=== PATIENT | male | born 1980 | race Caucasian/White ===

== ENCOUNTER 2018-08-17 05:55 | Day surgery (SDC) | payer OTHER ==
[2018-08-17] MEDS ORDERED: LACTATED RINGERS 1,000 ML IV ONE (06:23)
[2018-08-17] MEDS ORDERED: ceFAZolin 2 GM/50 ML 2 GM/50 ML BAG IV ONE (06:53)
--- NOTE | 2018-08-17 07:09 | ANESTHESIA ---
Pre-Anesthesia VS, & Labs - Diagnosis umbilical hernia - Procedure umbilical hernia repair Height 6 ft 2 in Weight (kg) 105 kg - NPO >8 hours Home Medications and Allergies Home Medications: Ambulatory Orders Acetaminophen [Tylenol Extra Strength] 500 mg PO Q4HR PRN 08/10/18 Sertraline HCl 100 mg PO DAILY 08/10/18 Acetaminophen [Tylenol Extra Strength] 500 mg PO Q4HR PRN 08/10/18 Sertraline HCl 100 mg PO DAILY 08/10/18 Allergies/Adverse Reactions: Allergies Allergy/AdvReac Type Severity Reaction Status Date / Time No Known Drug Allergies Allergy Verified 08/17/18 06:34 Anes History & Medical History - Anesthetic History Anesthesia Complications: reports: No previous complications Family history of Anesthesia Complications: Denies Family history of Malignant Hyperthermia: Denies - Medical History Cardiovascular: reports: None Pulmonary: reports: None Gastrointestinal: reports: GERD Urinary: reports: Other Musculoskeletal: reports: Chronic back pain Endocrine/Autoimmune: reports: None Skin: reports: None - Surgical History Other Past Surgical History: vasectomy, dental implants Exam General: Alert, Oriented x3, Cooperative Dental: WNL Mouth Openin Fingerbreadth Neck Mobility: Normal Mallampati classification: II Respiratory: Lungs clear Cardiovascular: Regular rate Neurological: Normal speech Mental/Cognitive Status: Alert/Oriented X3, Normal for patient Cognitive Status: Within normal limits Plan Anesthesia Type: MAC Consent for Procedure(s) Verified and Reviewed: Yes Code Status: Attempt Resuscitation ASA classification: 1-Healthy patient Is this case an emergency?: No
[2018-08-17] MEDS ORDERED: LIDOCAINE 1%-EPI 1:100000 30 ML MDV ONE (07:19)
[2018-08-17] MEDS ORDERED: BUPIVACAINE 0.5% PF 30 ML VIAL ONE (07:19)
[2018-08-17] MEDS ORDERED: ceFAZolin 1 GM VIAL ONE (07:20)
[2018-08-17] MEDS ORDERED: LIDOCAINE MPF 1%-EPI 1:200000 30 ML VIAL SUBQ ONE ×2 (07:43)
[2018-08-17] MEDS ORDERED: BUPIVACAINE 0.5% PF 30 ML VIAL INFIL ONE ×2 (07:43)
[2018-08-17] MEDS ORDERED: oxyCODONE 5 MG TABLET PO PRN (08:29)
[2018-08-17] MEDS ORDERED: ACETAMINOPHEN 325 MG TABLET PO PRN (08:29)
[2018-08-17] MEDS ORDERED: IBUPROFEN 600 MG TABLET PO PRN (08:29)
[2018-08-17] MEDS ORDERED: ONDANSETRON 4 MG/2 ML VIAL IVP PRN (08:29)
[2018-08-17] MEDS ORDERED: KETOROLAC 30 MG/ML VIAL IVP ONE (09:00)
[2018-08-17] MEDS ORDERED: MIDAZOLAM 2 MG/2 ML VIAL IVP ONE (09:00)
[2018-08-17] MEDS ORDERED: PROPOFOL 200 MG/20 ML VIAL IVP ONE (09:00)
[2018-08-17] MEDS ORDERED: DEXAMETHASONE 4 MG/ML VIAL IVP ONE (09:00)
[2018-08-17] MEDS ORDERED: ONDANSETRON 4 MG/2 ML VIAL IVP ONE (09:00)
[2018-08-17] MEDS ORDERED: LIDOCAINE-MPF 2% 5 ML VIAL IM ONE (09:00)
[2018-08-17] MEDS ORDERED: fentaNYL 100 MCG/2 ML VIAL IVP ONE (09:00)
[2018-08-17 09:15] VITALS: BP 128/96
--- NOTE | 2018-08-17 11:07 | OPERATIVE REPORT ---
DATE OF SERVICE: 08/17/2018 Physician: Coy Mejia MD PREOPERATIVE DIAGNOSIS: Symptomatic umbilical hernia. POSTOPERATIVE DIAGNOSIS: Symptomatic umbilical hernia. PROCEDURE PERFORMED: Open repair of symptomatic umbilical hernia. ANESTHESIA: Local plus monitored anesthesia care by Marshall Carrillo CRNA. SURGEON: Coy Mejia MD ESTIMATED BLOOD LOSS: 5 mL. COMPLICATIONS: None. FINDINGS: A 1 cm umbilical fascial defect was present with omentum present within the hernia sac. T here was no evidence of strangulation or incarceration. INDICATIONS: Patient is a 38-year-old gentleman with a recent onset of a painful umbilical bulge. E xamination revealed a reducible small umbilical hernia. He was advised to undergo repair. TECHNIQUE: After informed consent, the patient was taken to the operating room where he was sedated and monitored. Preoperative preparation included administration of 2 grams of cefazolin intravenousl y within an hour of the incision and application of sequential calf compression boots. His abdomen h ad been clipped in ASU, was repaired with iodoform solution, following which, a periumbilical block w as instilled using a 50:50 combination of 1% lidocaine plain and 0.5% Marcaine with epinephrine, a to sonia of 35 mL of the mixture was used. The abdomen was re-prepared with ChloraPrep solution and drape d in the usual sterile fashion. A curvilinear transverse infraumbilical incision was made approximately 4 cm in length and carried do wn through subcutaneous tissues. Hemostasis achieved with electrocautery. The umbilical dermis was dissected off of the underlying hernia sac, which was then opened and excised. The fascial edges wer e mobilized circumferentially. The omentum was reduced in the peritoneal cavity. The fascial edges were reapproximated transversely with interrupted 0 Ethibond sutures, approximately 4 were used. After hemostasis was assured, the wound was irrigated with antibiotic solution containing 1 gram of c efazolin per liter, following which, wound closure was accomplished in layers using interrupted 2-0 V icryl to reapproximate the deep subcutaneous tissues, followed by continuous 3-0 Vicryl for the super ficial subcutaneous tissues, followed by 4-0 Monocryl subcuticular skin closure and Dermabond. The p rocedure was terminated. The patient was transferred out of the operating room in satisfactory condi tion. Sponge and needle counts were correct x2. No drains were used. cc: Roe Hughes MD TD: 08/17/2018 08:43
== END 2018-08-17 05:56 | disposition home or self-care (01) ==
LOC: SDS 05:55
PROVIDERS: ATTEND Internal Medicine Gastroenterology
PROC: 0WQF0ZZ Repair Abdominal Wall, Open Approach (ICD-10-PCS; principal; 2018-08-17 07:30)
DX: K42.9 Umbilical hernia without obstruction or gangrene (principal); K59.03 Drug induced constipation; Z87.891 Personal history of nicotine dependence
CPT/HCPCS: 49585; J0690; J7120

== ENCOUNTER 2020-03-04 17:53 | Day surgery (SDC) | payer OTHER ==
[2020-03-04 18:13] LABS: BILIRUBIN,URINE NEGATIVE (NEGATIVE); GLUCOSE, URINE (UA) NEGATIVE (NEGATIVE); KETONES,URINE (UA) NEGATIVE (NEGATIVE); LEUKOCYTE ESTERASE, URINE NEGATIVE (NEGATIVE); NITRITE,URINE NEGATIVE (NEGATIVE); OCCULT BLOOD,URINE NEGATIVE (NEGATIVE); PROTEIN,URINE NEGATIVE (NEGATIVE); UROBILINOGEN,URINE 1 (NORMAL) E.U./dL (NORMAL)
[2020-03-04 18:15] LABS: CLARITY,URINE CLEAR (CLEAR)
[2020-03-04 18:22] LABS: BASOPHILS % (AUTO) 0.3 %; EOSINOPHILS # (AUTO) 0.1 10^3/uL (0.0-0.7); EOSINOPHILS % (AUTO) 0.7 %; HGB - HEMOGLOBIN 17.3 g/dL (14.0-18.0); LYMPHOCYTES # (AUTO) 1.1 10^3/uL (1.5-3.5); MEAN CORPUSCULAR HEMOGLOBIN 30.5 pg (27.0-31.0); MEAN CORPUSCULAR HGB CONC 34.9 g/dL (32.0-36.0); MEAN CORPUSCULAR VOLUME 87.3 fL (80.0-94.0); MEAN PLATELET VOLUME 10.8 fL (7.4-11.4); MONOCYTES # (AUTO) 0.5 10^3/uL (0.0-1.0); MONOCYTES % (AUTO) 5.8 %; NEUTROPHILS # (AUTO) 7.4 10^3/uL (1.5-6.6); NEUTROPHILS % (AUTO) 80.9 %; PLT - PLATELET COUNT 197 10^3/uL (130-450); RED BLOOD COUNT 5.67 10^6/uL (4.70-6.10); RED CELL DISTRIBUTION WIDTH 12.4 % (12.0-15.0); WHITE BLOOD COUNT 9.2 x10^3/uL (4.8-10.8)
[2020-03-04 18:34] LABS: ALBUMIN 4.7 g/dL (3.2-5.5); ALBUMIN/GLOBULIN RATIO 1.4 (1.0-2.2); BILIRUBIN,TOTAL 0.6 mg/dL (0.2-1.0); CALCIUM 9.9 mg/dL (8.5-10.3); CREATININE 1.1 mg/dL (0.6-1.2); TOTAL PROTEIN 8.1 g/dL (6.7-8.2)
[2020-03-04] MEDS ORDERED: IOVERSOL 320 100 ML VIAL IVP ONE ×2 (19:08→20:11)
--- NOTE | 2020-03-04 19:24 | ED Physician Documentation ---
PD HPI ABD PAIN - Stated complaint Stated Complaint: ABD PX - Chief complaint Chief Complaint: Abd Pain - History obtained from History obtained from: Patient - History of Present Illness Pain level max: 7 Pain level now: 5 Quality: Aching, Pain Location: RLQ Radiation: No: Chest, , Lower back, Left flank, Left shoulder, Right flank, Right shoulder, Upper back Improved by: Laying still Worsened by: Moving, Palpation Associated symptoms: Nausea. No: Fever, Vomiting, Hematemesis, Diarrhea, Constipation Similar symptoms before: Has not had sx before Recently seen: Not recently seen - Additional information Additional information: Patient is a 40-year-old male who presents to the emergency department with diffuse abdominal pain today, gradually settling in the right lower quadrant. Worse with movement, better with rest. Last oral intake was approximately noon today. No fevers. Some nausea but no vomiting. No diarrhea or constipation. Has not had similar symptoms previously. Review of Systems Ten Systems: 10 systems reviewed and negative Constitutional: denies: Fever, Chills Ears: denies: Ear pain Nose: denies: Rhinorrhea / runny nose, Congestion GI: denies: Vomiting, Diarrhea : denies: Dysuria, Frequency, Hesitancy, Hematuria Skin: denies: Rash Musculoskeletal: denies: Neck pain, Back pain Neurologic: denies: Headache PD PAST MEDICAL HISTORY - Past Medical History Cardiovascular: None Respiratory: None Endocrine/Autoimmune: None GI: GERD : Other HEENT: None Psych: Anxiety, Panic attacks Musculoskeletal: Chronic back pain Derm: None - Present Medications Home Medications: Ambulatory Orders Medication Instructions Recorded Confirmed Acetaminophen [Tylenol Extra 500 mg PO Q4HR PRN 08/10/18 08/10/18 Strength] Sertraline HCl 100 mg PO DAILY 08/10/18 08/17/18 oxyCODONE [Roxicodone] 5 mg PO Q6H PRN #15 tablet 08/17/18 - Allergies Allergies/Adverse Reactions: Allergies Allergy/AdvReac Type Severity Reaction Status Date / Time No Known Drug Allergies Allergy Verified 03/04/20 18:26 PD ED PE NORMAL - Vitals Vital signs reviewed: Yes - General General: Alert and oriented X 3, No acute distress, Well developed/nourished - HEENT HEENT: Moist mucous membranes - Neck Neck: Supple, no meningeal sign - Cardiac Cardiac: RRR, Strong equal pulses - Respiratory Respiratory: No respiratory distress, Clear bilaterally - Abdomen Abdomen: Soft, Non distended, Other (Tender to palpation right lower quadrant McBurney's point. Positive rebound and guarding. Positive Rovsing sign. Negative psoas and obturator signs. Positive heeltap) - Back Back: No CVA TTP, No spinal TTP - Derm Derm: Warm and dry - Extremities Extremities: No edema - Neuro Neuro: Alert and oriented X 3 - Psych Psych: Normal mood, Normal affect Results - Vitals Vitals: Vital Signs - 24 hr 03/04/20 03/04/20 18:19 19:35 Temperature 36.9 C 36.9 C Heart Rate 122 H 122 H Respiratory 20 20 Rate Blood Pressure 145/101 H 145/100 H O2 Saturation 98 98 Oxygen O2 Source Room air - Labs Labs: Laboratory Tests 03/04/20 03/04/20 03/04/20 06:17 06:17 18:10 WBC 9.2 RBC 5.67 Hgb 17.3 Hct 49.5 MCV 87.3 MCH 30.5 MCHC 34.9 RDW 12.4 Plt Count 197 MPV 10.8 Neut # (Auto) 7.4 H Lymph # (Auto) 1.1 L [place] # (Auto) 0.5 Eos # (Auto) 0.1 Baso # (Auto) 0.0 Absolute Nucleated RBC 0.00 Nucleated RBC % 0.0 Sodium 139 Potassium 3.8 Chloride 100 L Carbon Dioxide 27 Anion Gap 12.0 BUN 16 Creatinine 1.1 Estimated GFR (MDRD) 75 L Glucose 115 H Calcium 9.9 Total Bilirubin 0.6 AST 60 H ALT 120 H Alkaline Phosphatase 69 Total Protein 8.1 Albumin 4.7 Globulin 3.4 Albumin/Globulin Ratio 1.4 Lipase 50 Urine Color YELLOW Urine Clarity CLEAR Urine pH 6.0 Ur Specific [place] 1.025 Urine Protein NEGATIVE Urine Glucose (UA) NEGATIVE Urine Ketones NEGATIVE Urine Occult Blood NEGATIVE Urine Nitrite NEGATIVE Urine Bilirubin NEGATIVE Urine Urobilinogen 1 (NORMAL) Ur Leukocyte Esterase NEGATIVE Ur Microscopic Review NOT INDICATED Urine Culture Comments NOT INDICATED - Rads (name of study) CT abdomen pelvis Radiology: Prelim report reviewed, EMP read contemporaneously, See rad report (Acute appendicitis without perforation or abscess) PD MEDICAL DECISION MAKING - ED course Complexity details: reviewed results, re-evaluated patient, considered differential, d/w patient, d/w family, d/w it security consultant ED course: Patient with acute appendicitis. Discussed the case with Dr. Robertson, general surgery on-call who will come and evaluate the patient. She will take the patient to the operating room. Zosyn given. Pain well controlled. IV fluids started. Departure - Departure Disposition: ED Transfer to [facility] Clinical Impression: Appendicitis Qualifiers: Appendicitis type: acute appendicitis Acute appendicitis type: with localized peritonitis Appendicitis gangrene presence: without gangrene Appendicitis perforation presence: without perforation Appendicitis abscess presence: without abscess Qualified Code(s): K35.30 - Acute appendicitis with localized peritonitis, without perforation or gangrene Condition: Stable
[2020-03-04] MEDS ORDERED: PIPERACILLIN/TAZOBACTAM 4.5 GM in SODIUM CHLORIDE 0.9% MINIBAG 100 ML IV STA (20:16)
[2020-03-04] MEDS ORDERED: ONDANSETRON 4 MG/2 ML VIAL IVP STA (20:21)
[2020-03-04] MEDS ORDERED: LACTATED RINGERS 1,000 ML IV STA (20:21)
[2020-03-04] MEDS ORDERED: MORPHINE 2 MG/ML CARPUJECT IVP STA (20:21)
--- NOTE | 2020-03-04 20:41 | CT Report ---
PROCEDURE: Abdomen/Pelvis W INDICATIONS: RLQ abd pain CONTRAST: IV CONTRAST: Optiray 320 ml: 100 PO CONTRAST: *NO PO CONTRAST TECHNIQUE: After the administration of intravenous contrast, 5 mm thick sections acquired from the diaphragms to the symphysis. 5 mm thick coronal and sagittal reformats were acquired. For radiation dose reducti on, the following was used: automated exposure control, adjustment of mA and/or kV according to peterson ent size. COMPARISON: None. FINDINGS: Image quality: Excellent. ABDOMEN: Lung bases: Lung bases are clear. Heart size is normal. Solid organs: Liver is normal in size. No focal lesion. Gallbladder is unremarkable. Biliary syste m is non dilated. Pancreas enhances normally. Mild splenomegaly measuring 13.3 cm in craniocaudal d imension, (6/42). No adrenal nodules. Kidneys demonstrate normal size and enhancement, without hydro nephrosis. Peritoneum and bowel: Appendix in the right lower quadrant is dilated up to 1.2 cm, (3/73). There is mild to moderate periappendiceal stranding. No fluid collection. No free air. No appendicolith. No sm all bowel obstruction. Distal colon is decompressed. The stomach is mostly decompressed. High density in medication fragments. Nodes and vessels: No retroperitoneal or mesenteric adenopathy by size criteria. Aorta and inferior vena cava are normal in size. Miscellaneous: No ventral hernias. PELVIS: Genitourinary: Bladder wall thickness is normal. Miscellaneous: No inguinal hernias or adenopathy. Bones: No suspicious bony lesions. No vertebral body compression fractures. IMPRESSION: 1. Acute appendicitis, moderate severity. No perforation demonstrated. 2. Mild splenomegaly. Reviewed by: Collin Craig MD on 03/04/2020 8:40 PM PDT Approved by: Collin Craig MD on 03/04/2020 8:40 PM PDT Station ID: [id number]
[2020-03-04] MEDS ORDERED: PROPOFOL 200 MG/20 ML VIAL IVP ONE (20:58)
[2020-03-04] MEDS ORDERED: fentaNYL 100 MCG/2 ML VIAL IVP ONE (20:58)
[2020-03-04] MEDS ORDERED: ROCURONIUM 50 MG/5 ML VIAL IVP ONE (20:58)
[2020-03-04] MEDS ORDERED: SUGAMMADEX 200 MG/2 ML VIAL IVP ONE (20:58)
[2020-03-04] MEDS ORDERED: MIDAZOLAM 2 MG/2 ML VIAL IVP ONE (20:58)
[2020-03-04] MEDS ORDERED: KETOROLAC 30 MG/ML VIAL IVP ONE (20:58)
[2020-03-04] MEDS ORDERED: ONDANSETRON 4 MG/2 ML VIAL IVP ONE (20:58)
[2020-03-04] MEDS ORDERED: DEXAMETHASONE 4 MG/ML VIAL IVP ONE (20:58)
--- NOTE | 2020-03-04 21:07 | HISTORY & PHYSICAL EXAMINATION ---
HPI - Admitted From Admitted from: ED - History Obtained From Records Reviewed: Other (Physician notes) Exam limitations: No limitations - History of Present Illness Severity at the worst: reports: Moderate Pain Quality: reports: Sharp, Aching Context-Pain started w/: reports: Rest Timing: reports: Gradual onset Duration: reports: Hours: (12) Improved with: reports: Nothing Worsened by: reports: Movement Associated symptoms: reports: Nausea HPI Comment/Other: Patient is a 40-year-old male who presents to the emergency department with diffuse abdominal pain today, gradually settling in the right lower quadrant. Worse with movement, better with rest. Last oral intake was approximately noon today. No fevers. Some nausea but no vomiting. No diarrhea or constipation. Has not had similar symptoms previously. He was evaluated in the ED and found to have appendicitis on CT. I have been consulted for difinitive management PMH/PSH - Past Medical History Cardiovascular: positive: None Respiratory: positive: None Endocrine/Autoimmune: positive: None GI: positive: GERD : positive: Other HEENT: positive: None Psych: positive: Anxiety, Panic attacks Musculoskeletal: positive: Chronic back pain Derm: positive: None MRSA Hx?: No Social & Family Hx - Living Situation Living Arrangement: At home Living Situation: With family ([employer]) - Social History Does the pt smoke?: No Smoking Status: Never smoker Does the pt have substance abuse?: No - POLST Patient has POLST: No Meds/Allgy - Home Medications Home Medications: Ambulatory Orders Medication Instructions Recorded Confirmed Acetaminophen [Tylenol Extra 500 mg PO Q4HR PRN 08/10/18 08/10/18 Strength] Sertraline HCl 100 mg PO DAILY 08/10/18 08/17/18 oxyCODONE [Roxicodone] 5 mg PO Q6H PRN #15 tablet 08/17/18 - Allergies Allergies/Adverse Reactions: Allergies Allergy/AdvReac Type Severity Reaction Status Date / Time No Known Drug Allergies Allergy Verified 03/04/20 18:26 Review of Systems - All Other Systems All Other Systems: reports: Reviewed and negative - Other Findings Other Findings: A complete 10 system review is negative with the exception of HPI Exam - Vital Signs Reviewed Vital Signs: Yes Vital Signs: Vital Signs x48h Temp Pulse Resp BP Pulse Ox 03/04/20 19:35 36.9 C 122 H 20 145/100 H 98 03/04/20 18:19 36.9 C 122 H 20 145/101 H 98 - Physical Exam General Appearance: positive: No acute distress, Alert Eyes Bilateral: positive: Normal inspection, PERRL, EOMI ENT: positive: ENT inspection nml, Pharynx nml, No signs of dehydration Neck: positive: Nml inspection, Thyroid nml, No JVD, Trachea midline Respiratory: positive: Chest non-tender, No respiratory distress, Breath sounds nml Cardiovascular: positive: Regular rate & rhythm, No murmur Peripheral Pulses: positive: 2+ Results - Lab Results Lab results reviewed: Yes Fish Bones: 03/04/20 06:17 03/04/20 06:17 Other Lab Results: Lab Results x24hrs 03/04/20 03/04/20 03/04/20 Range/Units 18:10 06:17 06:17 WBC 9.2 (4.8-10.8) x10^3/uL RBC 5.67 (4.70-6.10) 10^6/uL Hgb 17.3 (14.0-18.0) g/dL Hct 49.5 (42.0-52.0) % MCV 87.3 (80.0-94.0) fL MCH 30.5 (27.0-31.0) pg MCHC 34.9 (32.0-36.0) g/dL RDW 12.4 (12.0-15.0) % Plt Count 197 (130-450) 10^3/uL MPV 10.8 (7.4-11.4) fL Neut # (Auto) 7.4 H (1.5-6.6) 10^3/uL Lymph # (Auto) 1.1 L (1.5-3.5) 10^3/uL [place] # (Auto) 0.5 (0.0-1.0) 10^3/uL Eos # (Auto) 0.1 (0.0-0.7) 10^3/uL Baso # (Auto) 0.0 (0.0-0.1) 10^3/uL Absolute Nucleated RBC 0.00 x10^3/uL Nucleated RBC % 0.0 /100WBC Sodium 139 (135-145) mmol/L Potassium 3.8 (3.5-5.0) mmol/L Chloride 100 L (101-111) mmol/L Carbon Dioxide 27 (21-32) mmol/L Anion Gap 12.0 (6-13) BUN 16 (6-20) mg/dL Creatinine 1.1 (0.6-1.2) mg/dL Estimated GFR (MDRD) 75 L (>89) Glucose 115 H (70-100) mg/dL Calcium 9.9 (8.5-10.3) mg/dL Total Bilirubin 0.6 (0.2-1.0) mg/dL AST 60 H (10-42) IU/L ALT 120 H (10-60) IU/L Alkaline Phosphatase 69 (42-121) IU/L Total Protein 8.1 (6.7-8.2) g/dL Albumin 4.7 (3.2-5.5) g/dL Globulin 3.4 (2.1-4.2) g/dL Albumin/Globulin Ratio 1.4 (1.0-2.2) Lipase 50 (22-51) U/L Urine Color YELLOW Urine Clarity CLEAR (CLEAR) Urine pH 6.0 (5.0-7.5) PH Ur Specific [place] 1.025 (1.002-1.030) Urine Protein NEGATIVE (NEGATIVE) mg/dL Urine Glucose (UA) NEGATIVE (NEGATIVE) mg/dL Urine Ketones NEGATIVE (NEGATIVE) mg/dL Urine Occult Blood NEGATIVE (NEGATIVE) Urine Nitrite NEGATIVE (NEGATIVE) Urine Bilirubin NEGATIVE (NEGATIVE) Urine Urobilinogen 1 (NORMAL) (NORMAL) E.U./dL Ur Leukocyte Esterase NEGATIVE (NEGATIVE) Ur Microscopic Review NOT INDICATED Urine Culture Comments NOT INDICATED - Diagnostic Imaging Results Diagnostic Imaging Results: positive: Prelim report reviewed, Final report reviewed Diagnostic Imaging Results Comments: CT consistent with acute appendicitis without obvious evidence of gross peritonitis Impression/Plan - Problem List Problem List: Acute appendicitis I have recommended immediate transfer to the operating room for laparoscopic appendectomy and indicated procedures. We have discussed the risks and benefits of this operation including but not limited to infection, bleeding, damage to other organs or structures in the area, damage to the bowel, unexpected findings or results, nausea, vomiting, stroke, and heart attack. After careful consideration, the patient has expressed a desire to complete the procedure this evening. The OR team has been called. Written and verbal consent were obtained
[2020-03-04] MEDS ORDERED: MORPHINE 2 MG/ML CARPUJECT IVP PRN (21:08)
[2020-03-04] MEDS ORDERED: ATROPINE ABBOJECT 1 MG/10 ML SYRINGE IVP PRN (21:08)
[2020-03-04] MEDS ORDERED: ONDANSETRON 4 MG/2 ML VIAL IVP PRN ×2 (21:08→22:32)
[2020-03-04] MEDS ORDERED: METOCLOPRAMIDE 10 MG/2 ML VIAL IVP PRN (21:08)
[2020-03-04] MEDS ORDERED: ePHEDrine 50 MG/ML VIAL IVP PRN (21:08)
[2020-03-04] MEDS ORDERED: fentaNYL 100 MCG/2 ML VIAL IVP PRN (21:08)
[2020-03-04] MEDS ORDERED: HYDROmorphone 0.5 MG/0.5 ML SYRINGE IVP PRN (21:08)
[2020-03-04] MEDS ORDERED: NALOXONE 0.4 MG/ML VIAL IVP PRN (21:08)
--- NOTE | 2020-03-04 21:08 | ANESTHESIA ---
Pre-Anesthesia VS, & Labs - Diagnosis appendecitis - Procedure lap appendectomy Vital Signs: Temp Pulse Resp BP Pulse Ox 36.9 C 89 16 130/99 H 100 03/04/20 21:00 03/04/20 21:00 03/04/20 21:00 03/04/20 21:00 03/04/20 21:00 Height: 6 ft 2 in Weight (kg): 104.326 kg Body Mass Index: 29.5 BMI Classification: Overweight - NPO >8 hours - Lab Results Current Lab Results: Laboratory Tests 03/04/20 06:17: Sodium 139, Potassium 3.8, Chloride 100 L, Carbon Dioxide 27, Anion Gap 12.0, BUN 16, Creatinine 1.1, Estimated GFR (MDRD) 75 L, Glucose 115 H , Calcium 9.9, Total Bilirubin 0.6, AST 60 H, ALT 120 H, Alkaline Phosphatase 69, Total Protein 8.1, Albumin 4.7, Globulin 3.4, Albumin/Globulin Ratio 1.4, Lipase 50 03/04/20 06:17: WBC 9.2, RBC 5.67, Hgb 17.3, Hct 49.5, MCV 87.3, MCH 30.5, MCHC 34.9, RDW 12.4, Plt Count 197, MPV 10.8, Neut # (Auto) 7.4 H, Lymph # (Auto) 1.1 L, [place] # (Auto) 0.5, Eos # (Auto) 0.1, Baso # (Auto) 0.0, Absolute Nucleated RBC 0.00, Nucleated RBC % 0.0 Lab results reviewed: Yes Fish Bones: 03/04/20 06:17 03/04/20 06:17 Home Medications and Allergies Active Medications Piperacillin Sod/Tazobactam (Sod 4.5 gm/ Sodium Chloride) 100 mls @ 100 mls/hr IV ONCE STA Stop: 03/04/20 21:15 Last Admin: 03/04/20 20:41 Dose: 100 mls/hr Documented by: Lactated Ringer's (Lr) 1,000 mls @ 150 mls/hr IV .Q6H40M STA Stop: 03/05/20 03:00 Acetaminophen [Tylenol Extra Strength] 500 mg PO Q4HR PRN 08/10/18 Sertraline HCl 100 mg PO DAILY 08/10/18 Allergies/Adverse Reactions: Allergies Allergy/AdvReac Type Severity Reaction Status Date / Time No Known Drug Allergies Allergy Verified 03/04/20 18:26 Anes History & Medical History - Anesthetic History Anesthesia Complications: reports: No previous complications Family history of Anesthesia Complications: Denies Family history of Malignant Hyperthermia: Denies - Medical History Cardiovascular: reports: None Pulmonary: reports: None Gastrointestinal: reports: GERD Urinary: reports: Other Musculoskeletal: reports: Chronic back pain Endocrine/Autoimmune: reports: None Skin: reports: None Smoking Status: Never smoker Psychosocial: reports: Anxiety Exam General: Alert, Oriented x3, Cooperative, No acute distress Dental: WNL Mouth Openin Fingerbreadth Neck Mobility: Normal Mallampati classification: I Respiratory: Lungs clear, Normal breath sounds, No respiratory distress, No accessory muscle use Cardiovascular: Regular rate, Normal S1, Normal S2, No murmurs Plan Anesthesia Type: General Consent for Procedure(s) Verified and Reviewed: Yes Code Status: Attempt Resuscitation ASA classification: 1-Healthy patient Is this case an emergency?: Yes
[2020-03-04] MEDS ORDERED: LIDOCAINE 1%-EPI 1:100000 20 ML MDV ONE (21:17)
[2020-03-04] MEDS ORDERED: BUPIVACAINE 0.5% PF 30 ML VIAL ONE (21:17)
[2020-03-04] MEDS ORDERED: oxyCODONE/ACET 5/325 Prepack 4 PO STA (21:22)
[2020-03-04] MEDS ORDERED: LIDOCAINE 1%-EPI 1:100000 20 ML MDV SUBQ ONE (21:45)
[2020-03-04] MEDS ORDERED: BUPIVACAINE 0.5% PF 30 ML VIAL SUBQ ONE ×2 (21:45)
[2020-03-04] MEDS ORDERED: LACTATED RINGERS 1,000 ML IV SCH (22:00)
[2020-03-04] MEDS ORDERED: LACTATED RINGERS 1,000 ML IV ONE (22:06)
--- NOTE | 2020-03-04 22:30 | OPERATIVE REPORT ---
Operative Report - General Procedure Date: 03/04/20 Planned Procedure: Laparoscopic appendectomy with indicated procedures Pre-Op Diagnosis: Acute appendicitis Procedure Performed: Laparoscopy with lysis of adhesions and appendectomy. Post Op Diagnosis: Acute appendicitis, abdominal adhesive disease - Procedure Note Primary Surgeon: Ailyn Anesthesia Provider: MELI Calderón Anesthesia Technique: General ET tube, Local Pathology: Appendix in foramlin to pathology Estimated Blood Loss (mL): 20 Findings: 1. Moderate abdominal adhesive disease 2. Acute appendicitis Complications: None apparent/ - Other Other Information/Narrative: After obtaining informed consent, the patient is brought to the operating room and placed in the supine position on the operating table. Following successful induction of general endotracheal anesthesia, appropriate padding of all bony prominences, and placement of appropriate monitors, the abdomen was prepped and draped in the standard surgical fashion. A timeout was held per scope protocol. All elements of the surgical safety checklist were followed before, during, and after the procedure. Following infiltration with local anesthetic to create a field block, an incision was created inferior to the umbilicus and carried down through the skin and subcutaneous tissue to reveal the fascia below. 2-0 Vicryl retention sutures were placed on either side of the midline and the abdomen was entered under direct vision using a 15 blade scalpel. A 10 mm blunt Tapia balloon trocar was placed in the abdominal cavity and it was insufflated to 15 mmHg pressure. The patient was placed in Trendelenburg position with the left side rotated toward the floor. The camera was placed in the abdominal cavity and we immediately visualized Fairly dense adhesions from the existing umbilical incision into the right upper quadrant and right lower quadrant.the cecum in the right lower quadrant. These were gently grasped and divided sharply using laparo scopic scissors and countertraction.All portions of the omentum were checked for hemostasis. The abdomen was irrigated with warm saline solution. We identified the cecum in the right lower quadrant now that we were able to visualize that region.It was rotated medially. The appendix was noted in the retrocecal position.Careful dissection was undertaken to deliver it from the retroperitoneal space and into the peritoneal cavity so that it could be addressed. The appendix was grasped and elevated revealing its attachment to the cecum. A window was created in the mesoappendix at this location. A laparoscopic stapling device was used to ligate the appendix and liberated from its attachment to the cecum. An additional load of the device were used to divide its mesentery.The appendix was placed in an Endo Catch bag and removed via the umbilical port with a camera in the epigastric position. The camera was replaced in the operative site examined. It was irrigated with warm saline solu tion and aspirated free of all fluid and particulate matter. The table was flattened and the abdomen evaluated once again. The trochars were removed under direct vision and abdomen was desufflated. The umbilical incision was closed with interrupted Vicryl suture and Monocryl stitches were placed in the skin. All sponge, needles, and instrument counts were correct at the conclusion of the case. The patient was allowed to wake from anesthesia without difficulty and taken to the postanesthesia care unit in good condition.
[2020-03-04] MEDS ORDERED: ACETAMINOPHEN 325 MG TABLET PO PRN (22:32)
[2020-03-04] MEDS ORDERED: IBUPROFEN 600 MG TABLET PO PRN (22:32)
[2020-03-04] MEDS ORDERED: oxyCODONE 5 MG TABLET PO PRN (22:32)
--- NOTE | 2020-03-04 22:40 | ANESTHESIA POST OP EVALUATION ---
Anesthesia Post Eval - Post Anesthesia Eval Vitals: Last Vital Signs Temp 36.8 C 03/04/20 22:30 Pulse 89 03/04/20 22:30 Resp 21 03/04/20 22:30 BP 132/94 H 03/04/20 22:30 Pulse Ox 95 03/04/20 22:30 CV Function Including HR & BP: positive: Stable Pain Control: positive: Satisfactory Nausea & Vomiting: positive: Negative Mental Status: positive: Baseline Respiratory Status: Airway Patent Hydration Status: Satisfactory Anesthesia Complications: positive: None
[2020-03-05 01:13] VITALS: BP 136/76
== END 2020-03-05 01:35 | disposition home or self-care (01) ==
LOC: ED 17:53 → SDS 20:57 → MS2 22:20 → SDS 03-05 01:35
PROVIDERS: ATTEND Surgery
PROC: 0DTJ4ZZ Resection of Appendix, Percutaneous Endoscopic Approach (ICD-10-PCS; principal; 2020-03-04 20:47)
DX: K35.80 Unspecified acute appendicitis (principal); K66.0 Peritoneal adhesions (postprocedural) (postinfection); E66.3 Overweight; Z68.29 Body mass index [BMI] 29.0-29.9, adult; G89.29 Other chronic pain; M24.9 Joint derangement, unspecified; Z79.891 Long term (current) use of opiate analgesic
CPT/HCPCS: 36415; 44970; 74177; 80053; 81003; 83690; 85025; 96374; 96375; 99284; 99285; J7120; Q9967; 81001; 87086